=== PATIENT | female | born 1990 | race Caucasian/White ===

== ENCOUNTER 2022-11-29 12:33 | Outpatient (REF) | payer OTHER, SELFPAY ==
--- NOTE | 2022-11-29 12:00 | PAPFT_PTH ---
PATIENT: Thai Ann LOC: [facility] U#:[id number] AGE/SX: 32/F ROOM: RE11/29/[address]: SHANNA VINCENT : 1990 BED: DIS: 11/29/2022 SPEC #: [id number] RECD: 11/29/22 18:20 STATUS: DYLON REQ #: [id number] THEA: 11/29/22 12:[address]: Shanna Vincent DEPT: [facility] Cytology RECD BY: Ute Henriquez ENTERED: 11/29/22 18:20 SP TYPE: PAPFT OT DR: No Local Tissues: 1 - CX/ENDOCX FOR PAP SMEARS Procedures: PAP THIN PREP/[facility] Screening HPV DNA PROBE Comments: [id number] (CHLAMYDIA/GC)
[2022-11-30 12:48] LABS: Chlamydia Result Negative (Negative); GC Result Negative (Negative)
== END 2022-11-29 12:34 | disposition home or self-care (01) ==
LOC: NCHCN 12:33
PROVIDERS: Visit Provider Nurse Practitioner Family
DX: Z11.3 Encounter for screening for infections with a predominantly sexual mode of transmission (principal); Z12.4 Encounter for screening for malignant neoplasm of cervix; Z11.51 Encounter for screening for human papillomavirus (HPV)
CPT/HCPCS: 87491; 87591; 88142; 87624